=== PATIENT | male | born 1975 | race Caucasian/White ===

== ENCOUNTER 2018-05-04 10:12 | Emergency (ER) | payer BC ==
[2018-05-04 10:44] VITALS: BP 145/82
[2018-05-04] MEDS ORDERED: Cyclobenzaprine TAB* 10 MG PO ONE (11:08)
[2018-05-04] MEDS ORDERED: traMADol TAB* 50 MG PO ONE (11:09)
--- NOTE | 2018-05-04 11:26 | UC ---
Back Pain HPI - HPI Summary HPI Summary: The patient is a 42-year-old male that presents here with severe low back pain. He states he has had chronic back pain since his mid 20s. He reports that he has spinal stenosis as well as herniated disks. He states he has had an MRI within the past year. He states he has had 2 epidural injections in the past which gave him only minimal relief. He has been told that he needs surgery and in fact was scheduled for surgery at [facility] but he canceled over concerns of potential surgical complications. He usually gets by with only ibuprofen when things get bad he is often prescribed tramadol, Flexeril, and a Medrol dosepak. He requests he be referred to our pain clinic and our neurosurgeon. 3 days ago he aggravated his back playing in the pool with his kids. He states that he has daily back pain and left leg pain as well as paresthesias. The morning after aggravating his back in the pool he started experiencing right leg pain as well. He has not had any bowel or bladder dysfunction. He denies any fever or chills nausea or vomiting. He has not had any UTI symptoms. - History of Current Complaint Chief Complaint: UCBackPain Stated Complaint: BACK INJURY Time Seen by Provider: 05/04/18 10:48 Hx Obtained From: Patient Onset/Duration: Gradual Onset, Worse Since - 3 days Timing: Constant Severity Initially: Severe Severity Currently: Severe Pain Intensity: 10 Pain Scale Used: 0-10 Numeric Back Pain: Is Diffuse, Radiates To - both legs Character: Dull, Aching, Throbbing Aggravating Factor(s): Movement, Bending Alleviating Factor(s): OTC Meds - mild relief Associated Signs And Symptoms: Positive: Numbness - leg leg - Allergies/Home Medications Allergies/Adverse Reactions: Allergies Allergy/AdvReac Type Severity Reaction Status Date / Time No Known Allergies Allergy Verified 05/04/18 10:44 Home Medications: Home Medications Cholecalciferol TAB* [Vitamin D TAB*] 1,000 unit PO DAILY 05/04/18 [History Confirmed 05/04/18] Ibuprofen TAB* [Advil TAB*] 600 mg PO Q6H PRN 05/04/18 [History Confirmed ] [place]-3 Fatty Acids/Fish Oil [Fish Oil 1,000 mg Capsule] 1 each PO DAILY [History Confirmed 05/04/18] PMH/Surg Hx/FS Hx/Imm Hx Previously Healthy: Yes - Surgical History Surgical History: None - Family History Known Family History: Positive: Hypertension - Social History Alcohol Use: Weekly Substance Use Type: None Smoking Status (MU): Light Every Day Tobacco Smoker Type: Cigarettes Amount Used/How Often: 1 pk every 2 days Review of Systems Constitutional: Negative Skin: Negative Eyes: Negative ENT: Negative Respiratory: Negative Cardiovascular: Negative Gastrointestinal: Negative Genitourinary: Negative Motor: Negative Neurovascular: Negative Musculoskeletal: Arthralgia, Myalgia Neurological: Negative Psychological: Negative Is Patient Immunocompromised?: No All Other Systems Reviewed And Are Negative: Yes Physical Exam Triage Information Reviewed: Yes Appearance: Well-Appearing, No Pain Distress, Well-Nourished Vital Signs: Initial Vital Signs Temp 98.2 F 05/04/18 10:40 Pulse 82 05/04/18 10:40 Resp 16 05/04/18 10:40 BP 145/82 05/04/18 10:40 Pulse Ox 98 05/04/18 10:40 Vital Signs Reviewed: Yes Eyes: Positive: Conjunctiva Clear ENT: Positive: Hearing grossly normal. Negative: Nasal congestion, Nasal drainage, Muffled voice, Hoarse voice Neck: Positive: Supple, Nontender, No Lymphadenopathy Respiratory: Positive: Lungs clear, Normal breath sounds, No respiratory distress, No accessory muscle use Cardiovascular: Positive: RRR, No Murmur Musculoskeletal: Positive: Strength Intact, ROM Intact, No Edema Neurological Exam: Normal Neurological: Positive: Alert, Other: - Decrease ankle reflex left/otherwise nonfocal exam. Negative seated SLR Psychological Exam: Normal Skin Exam: Normal Back Pain Course/Dx - Differential Dx/Diagnosis Provider Diagnoses: spinal stenosis. lumbar myofascial strain/spasm Discharge - Sign-Out/Discharge Documenting (check all that apply): Discharge/Admit/Transfer - Discharge Plan Condition: Stable Disposition: HOME Prescriptions: Cyclobenzaprine TAB* [Flexeril TAB*] 10 mg PO TID PRN #21 tab PRN Reason: Spasms methylPREDNISolone [Medrol Dosepak 4 MG*] 0 mg PO .SEE [employer]ARON [employer]STRUCTION #1 tab traMADol TAB* [Ultram*] 50 mg PO Q6HR PRN #20 tab MDD 4 PRN Reason: Pain Patient Education Materials: Sciatica (ED), Lumbar Spinal Stenosis (ED) Referrals: Ger Ordoñez MD [Medical Doctor] - 2 Weeks (PAIN MANAGEMENT) Stephany Gill MD [Medical Doctor] - If Needed (neurosurgery) Additional Instructions: Don't take tramadol and flexeril (apin med and muscle relaxer) and drive or operate equipment or work on ladders - Billing Disposition and Condition Condition: STABLE Disposition: Home Images Front/Back of Body, Lg ([place]): 1 - tender right paraspinous muscle spasm
== END 2018-05-04 11:24 | disposition home or self-care (01) ==
LOC: UCEAST 10:12
DX: M48.061 Spinal stenosis, lumbar region without neurogenic claudication (principal); S39.012A Strain of muscle, fascia and tendon of lower back, initial encounter; M62.830 Muscle spasm of back; G89.29 Other chronic pain; M54.5 Low back pain; F17.210 Nicotine dependence, cigarettes, uncomplicated; X50.9XXA Other and unspecified overexertion or strenuous movements or postures, initial encounter; Y92.89 Other specified places as the place of occurrence of the external cause
CPT/HCPCS: 99202; A9270-GY; G0463

== ENCOUNTER 2018-08-08 08:33 | Emergency (ER) | payer BC ==
--- NOTE | 2018-08-08 10:05 | UC ---
Lower Extremity/Ankle HPI - HPI Summary HPI Summary: 46-year-old male presents with reports of right knee swelling and lower extremity pain and swelling over the past week. States it began as some prepatellar swelling that developed after installing some hardwood floor however over the past week he has been noticing swelling of the lower leg and foot that is progressively worsened as well. He is having some tenderness to the lateral aspect of the right lower leg. Denies fever, chills, chest pain, shortness of breath, numbness, tingling, weakness of the lower extremity, personal or family history of blood clots, recent confinement or immobility, history of recent surgery or trauma, or known malignancy. - History of Current Complaint Chief Complaint: UCLowerExtremity Stated Complaint: LEG PAIN Time Seen by Provider: 08/08/18 09:50 Hx Obtained From: Patient Onset/Duration: Gradual Onset, Lasting Weeks - 1 Severity Initially: Mild Severity Currently: Moderate Pain Intensity: 7 Aggravating Factor(s): Nothing Alleviating Factor(s): Nothing Able to Bear Weight: Yes - Risk Factors DVT Risk Factors: Smoking - Allergies/Home Medications Allergies/Adverse Reactions: Allergies Allergy/AdvReac Type Severity Reaction Status Date / Time No Known Allergies Allergy Verified 08/08/18 08:40 PMH/Surg Hx/FS Hx/Imm Hx Previously Healthy: Yes - denies significant PMH - Surgical History Surgical History: None - Family History Known Family History: Positive: Hypertension - Social History Occupation: Employed Part-time Lives: With Family Alcohol Use: Weekly Substance Use Type: None Smoking Status (MU): Light Every Day Tobacco Smoker Type: Cigarettes Amount Used/How Often: 1 pk every 2 days Review of Systems Constitutional: Negative Skin: Negative Respiratory: Negative Cardiovascular: Negative Motor: Negative Neurovascular: Negative Musculoskeletal: Arthralgia - right knee, Edema - right lower leg Is Patient Immunocompromised?: No All Other Systems Reviewed And Are Negative: Yes Physical Exam Triage Information Reviewed: Yes Appearance: Well-Appearing, No Pain Distress, Well-Nourished Vital Signs: Initial Vital Signs Temp 97.7 F 08/08/18 08:36 Pulse 88 08/08/18 08:36 Resp 18 08/08/18 08:36 BP 129/90 08/08/18 08:36 Pulse Ox 100 08/08/18 08:36 Vital Signs Reviewed: Yes Respiratory: Positive: Lungs clear, Normal breath sounds, No respiratory distress Cardiovascular: Positive: RRR, No Murmur, Pulses Normal, Brisk Capillary Refill , Other: - 1+ pitting edema to right lower leg, ankle, and foot Musculoskeletal: Positive: Strength Intact, ROM Intact, Other: - mid-calf circumference right=43.5 cm left 40.5 cm. Calf supple and nontender. Mild tenderness to lateral aspect RLE. Mild tenderness and swelling over right prepatellar bursa. Neurological: Positive: Alert, Other: - Sensation intact Skin Exam: Normal Diagnostics - Radiology No standard instances Xray Interpretation: Positive (See Comments) Radiology Interpretation Completed By: Radiologist - Doppler US RLE with no evidence of DVT. There is prepatellar bursitis present with evidence of rupture. Lower Extremity Course/Dx - Course Course Of Treatment: 42-year-old male with one-week history of prepatellar swelling and lower extremity swelling. Patient did have pitting edema of the right lower extremity including ankle and foot and his right mid calf conference was 3 cm greater than the left giving him a Wells DVT score of 2. Ultrasound of right lower extremity revealed no evidence of a DVT. There is evidence of prepatellar bursitis with rupture. Recommend conservative treatment with NSAIDs and RICE. He was given referral to orthopedics to follow- up in 7 days if no improvement in symptoms. - Differential Dx/Diagnosis Provider Diagnoses: Right prepatellar bursitis with rupture Discharge - Sign-Out/Discharge Documenting (check all that apply): Patient Departure All imaging exams completed and their final reports reviewed: Yes - Discharge Plan Condition: Stable Disposition: HOME Patient Education Materials: Knee Bursitis (ED) Referrals: No Primary Care Phys,NOPCP [Primary Care Provider] - Elvin Nam MD [Medical Doctor] - 1 Week (If no improvement.) Additional Instructions: The ultrasound performed in the clinic today showed no evidence of a blood clot. There is evidence of prepatellar bursitis that has ruptured which would explain the swelling of the leg. Take an [id number] anti-inflammatory such as ibuprofen (Advil, Motrin) or naproxen (Aleve) according to directions to help with the pain and swelling. Rest the leg as much as possible. You may continue to ambulate and bear weight as tolerated. Apply ice to the affected area for 15-20 minutes 3-4 times a day to help reduce swelling. Keep the leg elevated as much as possible to reduce swelling. He may also use an Van wrap to the knee while up and about to try to help keep the swelling down. Follow-up with orthopedic surgery in 7 days if symptoms persist. Seek immediate medical attention if you develop a fever greater than 100.5 F, have increased pain or swelling, redness or pain in the calf, chest pain, shortness of breath, or any worsening of symptoms. - Billing Disposition and Condition Condition: STABLE Disposition: Home
[2018-08-08 10:57] VITALS: BP 129/78
--- NOTE | 2018-08-08 11:48 | RAD ---
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 COMPARISON: No relevant prior exams available on the [facility] PACS for comparison. TECHNIQUE: Bautista scale, color Doppler, and spectral analysis of the deep veins of the RIGHT lower extremity. Vessel compression, phasicity, and augmentation assessed. REPORT: The RIGHT common femoral, great saphenous, profunda femoral, femoral, popliteal, and posterior tibial veins are patent. The peroneal veins could not be visualized limiting assessment. Corresponding with the region of clinical concern there is severe subcutaneous edema just inferior to the patella. Within the subcutaneous tissue plane there is a complex 0.7 cm AP by 3.4 cm transverse by 4.7 cm cephalocaudal fluid collection with acute angle at the inferior margin. Negative for intrinsic vascularity on Doppler. Patency of the LEFT common femoral vein documented. IMPRESSION: #. No evidence for RIGHT lower extremity deep venous thrombosis. The peroneal veins could not be visualized limiting assessment. #. Prepatellar bursitis with probable recent partial rupture inferiorly.
== END 2018-08-08 11:13 | disposition home or self-care (01) ==
LOC: UCEAST 08:33
DX: M70.41 Prepatellar bursitis, right knee (principal); Y93.H3 Activity, building and construction; M79.89 Other specified soft tissue disorders; F17.210 Nicotine dependence, cigarettes, uncomplicated
CPT/HCPCS: 99211; G0463